=== PATIENT | male | born 1970 | race Caucasian/White ===

== ENCOUNTER 2022-06-03 18:29 | Emergency (ER) | payer BC, SELFPAY ==
[2022-06-03 18:38] VITALS: BP 137/83; PULSE 74; RESP 16; TEMP 36.6; O2SAT 97
--- NOTE | 2022-06-03 18:45 | ED.EYEPROB ---
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 visual acuity without corrective lens, left 20/25, right 20/35 chief complaint: eye pain, eye redness and foreign body (LEFT EYE) Onset (ago): day(s) (THIS MORNING) Onset description: sudden Duration: constant Location: left eye Eye Symptoms: pain, foreign body sensation and blurry vision Place: home Severity: mild Severity scale (1-10): 3 Related Data Home Medications Medication Instructions Recorded Confirmed buprenorphine 8 mg-naloxone 2 mg 1 film buccal DIRECTED 06/03/22 06/03/22 sublingual film clonazepam 1 mg tablet 1 mg PO BID 06/03/22 06/03/22 zolpidem 10 mg tablet 10 mg PO DIRECTED 06/03/22 06/03/22 Allergies Allergy/AdvReac Type Severity Reaction Status Date / Time No Known Allergies Allergy Verified 06/03/22 18:50 Review of Systems Review of Systems: CONSTITUTIONAL: Denies fever, chills, or sweats. EYES: Denies visual changes. Reports redness,, irritation, no discharge.TO LEFT EYE WITH FEELING LIKE FOREIGN BODY TO HIS EYE. 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 CARDIOVASCULAR: Denies chest pain, palpitations, or edema. RESPIRATORY: Denies cough or dyspnea. SKIN: Denies rash or itching. NEUROLOGIC: Denies headache All systems reviewed & are unremarkable except as noted in HPI and below PMFSH Comments At time of signature, agree with nursing past medical, surgical, social and family history. There is no relevant family history pertinent to the presenting complaint Exam Narrative: GENERAL: Well-appearing, well-nourished, and in no acute distress. HEAD: Normocephalic, atraumatic. EYES: PERRLA and EOMI. Upper and lower eyelids unremarkable. No periorbital cellulitis noted. Sclera and conjunctivae MINIMALLY INJECTED LEFT EYE WITH FEELING LIKE FOREIGN BODY SEE PROCEDURE NOTE FOR FOREIGN BODY REMOVAL OF LEFT EYE ENT: Nares clear, no rhinorrhea or epistaxis. Mucous membranes moist. NECK: Supple. NO LYMPHADENOPATHY CHEST: Clear to auscultation. No respiratory distress.sao2 97% ON ROOM AIR HEART: Regular rate and rhythm. No murmur heard. Normal peripheral pulses. SKIN: Warm, dry, no rash. NEURO: No focal deficits. Alert and oriented x3. Course Course Emergency Course: Patient is aware of diagnosis, understands and agrees to treatment plan. Anticipatory guidance given. Patient agrees to follow-up as directed and is aware of reasons to seek care at the emergency department. Portions of this record may have been created with voice recognition software Level of Care: Express Care Visit Vital Signs Vital signs: Vital Signs Temperature 36.6 C 06/03/22 18:38 Pulse Rate 74 06/03/22 18:38 Respiratory Rate 16 06/03/22 18:38 Blood Pressure 137/83 06/03/22 18:38 Pulse Oximetry 97 06/03/22 18:38 Temperature 36.6 C 06/03/22 18:38 Pulse Rate 74 06/03/22 18:38 Respiratory Rate 16 06/03/22 18:38 Blood Pressure 137/83 06/03/22 18:38 Pulse Oximetry 97 06/03/22 18:38 Reviewed Procedures FB Removal Eye Foreign Body #1: Foreign Body Removal Date: 06/03/22 Foreign Body Removal Time: 18:55 Time Out performed: Yes Location: eye (L) Topical anesthetic used: tetracaine (0.5% INITIAL 2 DROPS) Foreign body: other (BLACK SPE
== END 2022-06-03 19:13 | disposition home or self-care (01) ==
PROVIDERS: Emergency Provider Registered Nurse
DX: T15.02XA Foreign body in cornea, left eye, initial encounter (principal); X58.XXXA Exposure to other specified factors, initial encounter; Y93.9 Activity, unspecified
CPT/HCPCS: 65220; 99213; A9270; G0463